=== PATIENT | male | born 1965 | race Caucasian/White ===

== ENCOUNTER 2023-12-02 10:06 | Emergency (ER) | payer BC, OTHER ==
[2023-12-02] MEDS: Take Home: Azithromycin 250 MG, 2 Tab Pack PO ONE (12:01)
== END 2023-12-02 12:06 | disposition home or self-care (01) ==
LOC: DL.ED 10:06
DX: J40 Bronchitis, not specified as acute or chronic (principal); E03.9 Hypothyroidism, unspecified; F17.210 Nicotine dependence, cigarettes, uncomplicated; Z79.82 Long term (current) use of aspirin; Z79.899 Other long term (current) drug therapy; Z79.890 Hormone replacement therapy
CPT/HCPCS: 71045; 99284; A9270